=== PATIENT | male | born 1990 | race Caucasian/White ===

== ENCOUNTER 2023-03-28 20:52 | Emergency (ER) | payer MEDICAID ==
[~2023-03-28] VITALS: Ht 172.7 cm; Wt 80.7 kg
[2023-03-28 20:59] VITALS: BP_SYST 165
[2023-03-28] MEDS ORDERED: NACL 0.9% 1,000 ML IV ONE (21:30)
[2023-03-28] MEDS ORDERED: KETOROLAC TROMETHAMINE 15 MG VIAL IVP ONE (21:30)
[2023-03-28 22:20] LABS: BASOPHILS % (AUTO) 0.2 % (0.0-2.0); EOSINOPHILS % (AUTO) 0.5 % (0.0-4.0); HEMATOCRIT 43.5 % (36-54); LYMPHOCYTES # (AUTO) 1.8 K/uL (1.0-5.5); LYMPHOCYTES % (AUTO) 20.2 % (20.5-51.5); MEAN CORPUSCULAR HEMOGLOBIN 32 pg (27-31); MEAN CORPUSCULAR HGB CONC 35 % (32-36); MEAN CORPUSCULAR VOLUME 92 fL (79.0-98.0); MONOCYTES # (AUTO) 0.7 K/uL (0.0-1.0); MONOCYTES % (AUTO) 7.6 % (1.7-9.3); NEUTROPHILS # (AUTO) 6.5 K/uL (1.8-7.7); NEUTROPHILS % (AUTO) 71.5 % (40.0-70.0); PLATELET COUNT (AUTO) 215 K/uL (130-430); RED BLOOD CELL COUNT(AUTO) 4.71 MIL/uL (4.2-6.2); RED CELL DISTRIBUTION WIDTH 11.8 % (9.0-15.0); WHITE BLOOD COUNT (AUTO) 9.1 K/uL (4.8-10.8)
[2023-03-28] MEDS ORDERED: LORazepam 2 MG/ML VIAL IVP ONE (22:30)
[2023-03-28 22:31] LABS: CALCIUM 8.5 mg/dL (8.4-11.0); CREATININE 1.13 mg/dL (0.55-1.30)
[2023-03-28 22:33] LABS: BARBITURATE, URINE NEGATIVE (NEG <=200); BENZODIAZEPINE, URINE NEGATIVE (NEG <=150); CANNABINOID, URINE NEGATIVE (NEG <=50); COCAINE, URINE NEGATIVE (NEG <=150); METHAMPHETAMINES SCREEN,URINE NEGATIVE (NEG <=500); OPIATE, URINE NEGATIVE (NEG <=100); PHENCYCLIDINE SCREEN,URINE NEGATIVE (NEG <=25); UR TRICYCLIC ANTIDEPRESSANTS NEGATIVE (NEG <=300); URINE AMPHETAMINE NEGATIVE (NEG <=500); URINE METHADONE NEGATIVE (NEG <=200); URINE OXYCODONE SCREEN NEGATIVE (NEG <=100); URINE PROPOXYPHENE SCREEN NEGATIVE (NEG <=300)
[2023-03-28 22:35] LABS: TOTAL BILIRUBIN 0.3 mg/dL (0.0-1.0)
[2023-03-28] MEDS ORDERED: HYDR-3698 PO (23:27)
[2023-03-28] MEDS ORDERED: IBUP-1969 PO (23:28)
[2023-03-29 00:29] VITALS: BP_SYST 165
== END 2023-03-29 00:29 | disposition home or self-care (01) ==
LOC: SED 20:52
DX: F41.9 Anxiety disorder, unspecified (principal); E86.0 Dehydration; R42 Dizziness and giddiness; R53.1 Weakness; R50.9 Fever, unspecified; I10 Essential (primary) hypertension; F14.99 Cocaine use, unspecified with unspecified cocaine-induced disorder; Z79.899 Other long term (current) drug therapy; Z20.822 Contact with and (suspected) exposure to COVID-19
CPT/HCPCS: 99284; 96374; 96361; 96375; 87426; 80307; 80053; 85025; 87040; 36415; 83605; 87804 ×2; J1885; J2060; J7030